=== PATIENT | male | born 1935 | race Caucasian/White ===

== ENCOUNTER → 2016-10-01 | Outpatient (CLI) | payer MEDICARE, BC ==
[~2016-10-01] MED LIST: ASA325 MG PO; ASPIRIN EC81 MG PO; BENADRYL-DPS25 MG PO; BISACODYL5 MG PO; CEPACOL SORE T1 EACH PO; COLACE-DPS100 MG PO; COMPAZINE10 MG PO; DULCOLAX-DPS10 MG PR; ENEMA READY TO133 ML PR; FLEXERIL-DPS10 MG PO; LEVAQUIN DPS500 MG PO; LIPITOR40 MG PO; MAALOX DPS30 ML PO; MILK OF MAGNESI10 ML PO; MIRALAX PACKET17 GM PO; OXY IR DPS5 MG PO; OYSTER SHELL W250 MG PO; PROTONIX40 MG PO; SENOKOT S1 TAB PO; TUMS DPS500 MG PO; TYLENOL DPS325 MG PO; ULTRAM DPS50 MG PO; ZOFRAN4 MG PO
== END | disposition home or self-care (01) ==
LOC: PTH.S 10:18
DX: Z01.818 Encounter for other preprocedural examination (principal)

== ENCOUNTER 2016-10-14 05:24 | Inpatient (IN) | payer MEDICARE, BC ==
[~2016-10-14] VITALS: Ht 172.7 cm; Wt 98.6 kg
--- NOTE | ~2016-10-14 | HP ---
ADMIT: 10/14/2016 RM/LOC: [facility] MR#: [id number] [address] [address] TY LUGO [address] [place] [address] Pre-OP History and Physical SEX: M AGE: 81 : 1935 DATE OF SERVICE: CHIEF COMPLAINT: Right knee pain. HISTORY OF PRESENT ILLNESS: The patient is an 81-year-old male. He has been having ongoing right knee pain. He had a right knee replacement many years ago. He has had increasing right knee pain. His right knee pain is limiting activity, now being admitted for a right revision total knee arthroplasty secondary aseptic failure. PAST MEDICAL HISTORY: Past medical problems include coronary artery disease, hyperlipidemia, hypertension, and chronic renal failure. MEDICATIONS: 1. Lisinopril. 2. Metoprolol. 3. Vitamins. 4. Atorvastatin. 5. Aspirin. ALLERGIES: NONE. SOCIAL HISTORY: Denies any tobacco or alcohol use. REVIEW OF SYSTEMS: Negative. PHYSICAL EXAMINATION: Healthy appearing male, in no acute distress, walks with antalgic gait on the right lower extremity. Motion is 5 to 80 degrees. No erythema or warmth. No cellulitis. No pain in the hip with range of motion. He does have pseudolaxity mediolaterally. Legs are neurovascularly intact. ADMIT: 10/14/2016 RM/LOC: [facility] MR#: [id number] [address] [place] [id number] TY [place] [address] [place] [address] Pre-OP History and Physical SEX: M AGE: 81 : 1935 DIAGNOSTIC DATA: X-rays AP, lateral, PA flexion view shows severe osteolysis, tibial tray with significant varus deformity and some medial bone loss. Femoral component has some osteolysis behind it, but appears well fixed. IMPRESSION: 1. 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 2. Coronary artery disease. PLAN: Talked about different options, failed conservative care. He has been seen both by Cardiology and primary care. Plan on proceeding with right revision total knee arthroplasty. He is aware of different risks, benefits, and options and agreed to proceed. Munir Jones MD/ amrita JOB #: [id number] CC: Munir Jones, Attending Physician Solis Miles, Family Physician
--- NOTE | ~2016-10-14 | OR ---
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 PROCEDURES: Right revision total knee arthroplasty. ASSISTANTS: Lloyd Ambriz PA-C and CHILANGO Caraballo COMPLICATIONS: None. ESTIMATED BLOOD LOSS: 100 mL. TOURNIQUET TIME: 114 minutes. COMPONENTS: 1. Size 4 TC3 femur. 2. +2 anterior bolt. 3. 13 x 90 mm cemented stem. 4. 4 mm posterolateral augment. 5. 8 mm distal lateral augment. 6. Size 4 MBT revision tray. 7. 13 x 60 mm cemented tibial stem. 8. Size 4 x 17.5 TC3 insert. DESCRIPTION OF PROCEDURE: The patient was taken to the operating room, received a spinal anesthetic. The right lower extremity was prepped and draped in standard fashion. His knee was very stiff, range of motion 5 to about 80 degrees. The leg was exsanguinated and tourniquet inflated. The old incision was reopened anteriorly. We did develop medial and lateral skin flaps. We did a medial parapatellar arthrotomy. We did a large medial release for exposure. We were able to externally rotate the tibia and sublux the patella laterally. We then did a medial and lateral gutter synovectomy and recreated the medial and lateral gutters. At that point, we excised all the fibrous tissue around the patellar tendon and patella. Patellar component was stable and well fixed. At that point, we removed the polyethylene insert. The tibia was obviously loose. We at that point, used flexible osteotomes and microsagittal oscillating saw and removed the femoral component, with really no bone loss. Unfortunately, there was a large osteolytic lesion around the lateral femoral condyle. The very lateral aspect of the lateral condyle was just a cortical shell, partially detached, but collateral ligament was intact to the epicondyle. At that point, again we were able to flex the knee and externally rotate it and we were able to remove the tibial component with our fingers. At that point, we used an extramedullary guide, we then cut the tibia ADMIT: 10/14/2016 RM/LOC: [facility] MR#: [id number] [address] [address] [place] [id number] [place] [address] Operative/Delivery Room Report SEX: M AGE: 81 : 1935 perpendicular to its long axis, taking no bone medially, some bone laterally. We then cleaned out any bony defects. We then reamed up to 15 mm reamer, fit it for size 4 tibial tray. There was some posterior medial bone loss otherwise, we had circumferential fit of our patellar tray. We then reamed distally for the fins. We then assembled a size 4 rotating platform tibial tray with a 13 x 60 mm cemented stem. We then left this in the tibia to protect it. At that point, we finished cleaning up the femur, we opened up the femur with a drill, reamed up to a size 15 reamer. We then sized the femur to size 4. We took off no bone laterally just a couple of millimeters medially to freshen up the bony surfaces. We cut this in 5 degrees of valgus. We then used the 4 in 1 cutting block, used the epicondyles to recreate the external rotation. Made anterior, posterior, and chamfer cuts, took no bone laterally, maybe a millimeter of bone medially. We ended up fitting it for 4 mm posterolateral augment. Again, because the cavitary defect on the lateral femoral condyle, we ended up fitting for an 8 mm distal augment. At that point, we assembled the box guide, pinned this in appropriate external rotation. At that point, we made our box cut for TC3 component. We then assembled the femoral component with an 8 mm distal lateral augment, 4 mm posterolateral augment, 13 x 90 mm stem, and a +2 anterior bolt translating the femur. At that point, we put in a 17.5 insert. We had full extension, full flexion, patella tracked centrally. No further lateralizations required, good stability. We then removed all trial components, Waterpik'd all the bony surfaces clean. Placed a cement restrictor in the tibia. We then cemented the tibia and femur in a standard fashion, put in the trial insert. At that point, we did an intraarticular block for postop pain relief. Once the cement was hard, deflated the tourniquet, obtained hemostasis. At that point, removed the trial insert and put in the real, reduced the knee, it was again found to be stable. We completed our intraarticular block. We then closed the extensor mechanism with a #2 Ethibond suture and interrupted 0 Vicryl suture, subcutaneous 2-0 Vicryl, beronica in the skin. We applied sterile dressings. He was taken to recovery room in stable condition. No complications. Munir Jones MD/ amrita JOB #: [id number] CC: Munir Jones, Attending Physician Solis Miles, Family Physician
[2016-10-18] MEDS ORDERED: OYSTER SHELL W250 MG PO (15:23)
[2016-10-18] MEDS ORDERED: MIRALAX PACKET17 GM PO (15:23)
[2016-10-18] MEDS ORDERED: LIPITOR40 MG PO (15:23)
[2016-10-18] MEDS ORDERED: ASA325 MG PO (15:23)
[2016-10-18] MEDS ORDERED: PROTONIX40 MG PO (15:23)
[2016-10-18] MEDS ORDERED: SENOKOT S1 TAB PO (15:24)
[2016-10-18] MEDS ORDERED: TYLENOL DPS325 MG PO ×2 (15:24→15:28)
[2016-10-18] MEDS ORDERED: BENADRYL-DPS25 MG PO (15:25)
[2016-10-18] MEDS ORDERED: COLACE-DPS100 MG PO (15:25)
[2016-10-18] MEDS ORDERED: CEPACOL SORE T1 EACH PO (15:25)
[2016-10-18] MEDS ORDERED: ULTRAM DPS50 MG PO (15:25)
[2016-10-18] MEDS ORDERED: MAALOX DPS30 ML PO (15:26)
[2016-10-18] MEDS ORDERED: BISACODYL5 MG PO (15:26)
[2016-10-18] MEDS ORDERED: MILK OF MAGNESI10 ML PO (15:26)
[2016-10-18] MEDS ORDERED: COMPAZINE10 MG PO (15:26)
[2016-10-18] MEDS ORDERED: FLEXERIL-DPS10 MG PO (15:26)
[2016-10-18] MEDS ORDERED: OXY IR DPS5 MG PO (15:27)
[2016-10-18] MEDS ORDERED: TUMS DPS500 MG PO (15:27)
[2016-10-18] MEDS ORDERED: ZOFRAN4 MG PO (15:28)
[2016-10-18] MEDS ORDERED: DULCOLAX-DPS10 MG PR (15:28)
[2016-10-18] MEDS ORDERED: ENEMA READY TO133 ML PR (15:29)
[2016-10-18] MEDS ORDERED: ASPIRIN EC81 MG PO (15:30)
[2016-10-18] MEDS ORDERED: LEVAQUIN DPS500 MG PO (15:30)
--- NOTE | 2016-10-23 08:20 | CO ---
ADMIT: 10/14/2016 RM/LOC: [facility] MR#: [id number] [address] [address] [place] [address] [place] [address] Consultation Report SEX: M AGE: 81 : 1935 DATE OF CONSULTATION: 10/01/2016 ATTENDING PHYSICIAN: Munir Jones CONSULTING PHYSICIAN: Julian Salazar, DATE OF PLANNED SURGERY: 10/14/2016. HISTORY OF PRESENT ILLNESS: This is an 81-year-old pleasant male who has a prior history of left total knee replacement and gets his care through [facility] in [place]. He is planning to undergo a right knee replacement on October 14. Prior to his left knee replacement, he underwent coronary artery evaluation and coronary artery bypass graft on January 17, two years ago. Previous to that, he did have an underlying history of coronary disease and coronary stenting. At this time, he presents for preoperative assessment and denies any chest pain or shortness of breath or cardiac concerns. He does take metoprolol 25 mg 1/2 tablet daily. Atorvastatin 40 mg daily. Calcium with D, aspirin and Advil, both of which he is putting on hold in preparation for surgery. PAST MEDICAL HISTORY: The patient also has a past medical history of hypertension, osteoarthritis, nonocclusive carotid stenosis, nonsustained ventricular tachycardia, hypercholesterolemia, and chronic renal insufficiency. FAMILY HISTORY: Noncontributory. SOCIAL HISTORY: Does not smoke. 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 REVIEW OF SYSTEMS: Denies any chest pain, shortness of breath, nausea, vomiting, diarrhea, constipation, hematemesis, hematochezia, melena, or clotting. PHYSICAL EXAMINATION: GENERAL: He is pleasant. Alert and oriented. VITAL SIGNS: His blood pressure 118/64, heart rate 77, he is 5 feet 8 inches tall, has a body mass index of 32.1. NECK: He has no JVD or bruit. HEENT: Ear, nose, and throat grossly normal. LUNGS: Clear. HEART: Regular. ABDOMEN: Soft, nontender. EXTREMITIES: No peripheral edema and good pulses. LABORATORY AND DIAGNOSTIC DATA: His lab does show some renal insufficiency with a creatinine of 1.5. His glucose of 101, hemoglobin 13.6, white count 7.0, and EKG shows PVC, poor anterior R-wave progression and inferior Q-wave ADMIT: 10/14/2016 RM/LOC: [facility] MR#: [id number] [address] [facility] [address] [place] [phone] [place] [id number] [place] [address] Consultation Report SEX: M AGE: 81 : 1935 in the lead III, suspicious for old inferior NH. IMPRESSION: 1. Stable coronary artery disease with history of coronary bypass graft. 2. Hyperlipidemia. 3. Hypertension, controlled. 4. Osteoarthritis. PLAN: He is an appropriate surgical candidate. We will hold his Advil and aspirin in preparation for surgery and plan to use aspirin full dose for DVT prophylaxis postoperatively. We will return his care to Solis Miles upon dismissal. Julian Salazar DO/ modl JOB #: [id number] CC: Munir Jones, Attending Physician Solis Miles, Family Physician
--- NOTE | 2016-11-12 21:06 | DS ---
ADMIT: 10/14/2016 RM/LOC: [address] [facility] MR#: [id number] 2620 [facility] [address] [place], [place] [address] YURI [place] [address] [place] [address] General Discharge Summary SEX: M AGE: 81 : 1935 ADMISSION DATE: 10/14/2016 DISCHARGE DATE: 10/17/2016 REASON FOR ADMISSION: Right total knee arthroplasty revision. 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 PROCEDURE PERFORMED: Right revision total knee arthroplasty. ANESTHETIC: Spinal. COMPLICATIONS: None. ESTIMATED BLOOD LOSS: 100 mL. SURGEON: Munir Jones MD. ASSISTANTS: 1. Lloyd Ambriz PA-C. 2. CHILANGO Caraballo. ACTIVE MEDICAL PROBLEMS: Osteoarthritis, status post total knee arthroplasty with aseptic loosening, coronary artery disease, stable with history of coronary artery bypass graft; hyperlipidemia; hypertension, controlled. HOSPITAL COURSE: Yuri was admitted on 10/14/2016 to undergo revision right total knee arthroplasty secondary to aseptic loosening. The procedure was completed by Dr. Jones successfully without complications. Postoperatively, he did well with pain control with intraoperative pain injection cocktail. Pain was well controlled also with oral analgesics. He participated well in physical therapy with use of the immobilizer when ambulating, but otherwise good range of motion. He had couple of low blood pressures on the morning of postoperative day #1 in 90s over 50s, did go ahead and held his antihypertensives at that point, and his pressures improved. On the evening of postoperative day #1, he had a couple of elevated temperatures, I consulted Dr. Yoon and he did blood cultures x2, urinalysis chest x-ray, and a CBC. Chest x-ray was negative, no source of infection was found. Temperature max was 101.4. He did experience mild acute surgical blood-loss anemia. Hemoglobin dropped to 9.8. He remained hemodynamically stable and did not require transfusion. He really had an uneventful course other than fevers and was feeling great during his hospitalization. On discharge, we covered him for the fever with Levaquin 500 mg x7 days with plans to recheck as outpatient with his primary care in [place]. On postoperative day #3, he was stable, fever was resolved, pressures were doing well, and he was ready for discharge with plans to go to [facility] facility for postop rehabilitation in ADMIT: 10/14/2016 RM/LOC: [address] [facility] MR#: [id number] 2620 [facility] [address] [place] [phone] [place] [address] [place] [address] General Discharge Summary SEX: M AGE: 81 : 1935 [facility] bed. DISCHARGE MEDICATIONS: 1. Aspirin 325 mg daily x6 weeks. 2. Lipitor 80 mg daily. 3. MiraLax p.r.n. 4. Oyster shell calcium with D 500 mg daily. 5. Protonix 40 mg daily while on aspirin. 6. Senokot b.i.d. p.r.n. 7. Tylenol 650 mg q.4 p.r.n. 8. Ultram 50 mg 1-2 q.6 p.r.n. 9. Benadryl p.r.n. 10.Cepacol p.r.n. 11.Colace p.r.n. 12.Compazine p.r.n. 13.Dulcolax p.r.n. 14.Flexeril 10 mg t.i.d. p.r.n. 15.Maalox p.r.n. 16.Milk of Mag p.r.n. 17.OxyIR 5 mg 1-2 q.4 hours p.r.n. 18.Tums p.r.n. 19.Zofran 4 mg q.4 p.r.n. 20.Levaquin 500 mg p.o. daily x7 days. DISCHARGE INSTRUCTIONS: He will wear the immobilizer for 4 weeks when ambulating and have it off with therapy working on range of motion. He will follow in Orthopedic office in 2 weeks for wound check, 6 weeks with x-rays. Follow up with his primary care provider as directed. Lloyd Ambriz PA-C / Munir Jones MD / amrita JOB #: [id number] CC: Munir Jones MD, Attending Physician Solis Miles PA-C, Family Physician
== END 2016-10-17 12:30 | DRG 467 ==
LOC: WOR 05:24 → 5MS 10:36
PROVIDERS: ADMIT Orthopaedic Surgery
PROC: 0SPC0JZ Removal of Synthetic Substitute from Right Knee Joint, Open Approach (ICD-10-PCS; principal; 2016-10-14)
PROC: 0SRC0J9 Replacement of Right Knee Joint with Synthetic Substitute, Cemented, Open Approach (ICD-10-PCS; principal; 2016-10-14)
DX: T84.032A Mechanical loosening of internal right knee prosthetic joint, initial encounter (principal); D62 Acute posthemorrhagic anemia; R50.9 Fever, unspecified; I65.29 Occlusion and stenosis of unspecified carotid artery; I12.9 Hypertensive chronic kidney disease with stage 1 through stage 4 chronic kidney disease, or unspecified chronic kidney disease; K59.00 Constipation, unspecified; R03.1 Nonspecific low blood-pressure reading; I25.10 Atherosclerotic heart disease of native coronary artery without angina pectoris; E78.5 Hyperlipidemia, unspecified; E78.00 Pure hypercholesterolemia, unspecified; N18.9 Chronic kidney disease, unspecified; Z79.82 Long term (current) use of aspirin; Z96.652 Presence of left artificial knee joint; Z95.5 Presence of coronary angioplasty implant and graft